=== PATIENT | male | born 1970 | race Caucasian/White ===

== ENCOUNTER → 2017-10-14 | Outpatient (CLI) | payer OTHER | LOC: M PLARAD 09:37 | DX: C43.39 Malignant melanoma of other parts of face (principal) | CPT/HCPCS: 78816 ==

== ENCOUNTER 2025-04-06 12:51 | Observation (INO) | payer BC ==
[~2025-04-06] VITALS: Ht 167.6 cm; Wt 74.5 kg
[2025-04-06] MEDS ORDERED: MONT-5 PO (13:08)
[2025-04-06] MEDS ORDERED: LISI5TAB11 PO (13:08)
[2025-04-06] MEDS ORDERED: INDA2.5T2 PO (13:08)
[2025-04-06] MEDS ORDERED: MONT5TAB7 PO (13:08)
[2025-04-06 15:00] LABS: BASO # 0.0 10^3/uL (0.0-0.2); BASO % 0.4 % (0.0-1.0); EOS # 0.1 10^3/uL (0.0-0.5); EOS % 0.6 % (0.0-3.0); LYMPH # 2.8 10^3/uL (1.5-5.0); LYMPH % 30.1 % (24.0-44.0); MONO # 0.9 10^3/uL (0.0-0.8); MONO % 9.5 % (2.0-8.0); NEUTROPHILS # 5.5 10^3/uL (1.5-8.5); NEUTROPHILS % 59.1 % (36.0-66.0); PLATELET COUNT, AUTOMATED 531 10^3/uL (150-450)
[2025-04-06 15:20] LABS: INR 1.13
[2025-04-06] MEDS ORDERED: ISOVUE-370 76% 100 ML VIAL As Ordered ONE (15:31)
[2025-04-06 15:35] LABS: ALT/SGPT 11 U/L (7.0-40); AST/SGOT 31 U/L (<34); CALCIUM LEVEL 9.2 MG/DL (8.5-10.1); CARBON DIOXIDE LEVEL 25 MMOL/L (20-31); CHLORIDE LEVEL 96 MMOL/L (98-107); CREATININE FOR GFR 0.79 MG/DL (0.70-1.30); GLOMERULAR FILTRATION RATE > 90.0 (>56); POTASSIUM SERUM 4.1 MMOL/L (3.5-5.1); SODIUM LEVEL 135 MMOL/L (136-145)
[2025-04-06] MEDS ORDERED: INDA1.253 PO (17:32)
[2025-04-06] MEDS ORDERED: HOME MED LIST COMPLETE! XX SCH (17:35)
[2025-04-06] MEDS ORDERED: MORPHINE 2 MG/ML 1 ML VIAL IV PRN (18:10)
[2025-04-06] MEDS: NS (Normal Saline) 0.9% 1,000 ML IV ONE (18:39)
[2025-04-06] MEDS: PANTOPRAZOLE 40MG VIAL IV SCH (18:39)
[2025-04-06] MEDS: NS (Normal Saline) 0.9% 1,000 ML IV SCH (19:48)
[2025-04-06] MEDS: MONTELUKAST 10 MG TAB PO SCH (21:12)
[2025-04-06 21:53] VITALS: BP 122/80; TEMP 97.7; O2SAT 99
[2025-04-07 03:28] VITALS: BP 102/68; TEMP 97.2; O2SAT 100
[2025-04-07 06:26] LABS: PLATELET COUNT, AUTOMATED 433 10^3/uL (150-450)
[2025-04-07 07:03] LABS: ALT/SGPT < 9 U/L (7.0-40); AST/SGOT 27 U/L (<34); CALCIUM LEVEL 8.4 MG/DL (8.5-10.1); CARBON DIOXIDE LEVEL 23 MMOL/L (20-31); CHLORIDE LEVEL 101 MMOL/L (98-107); CREATININE FOR GFR 0.80 MG/DL (0.70-1.30); GLOMERULAR FILTRATION RATE > 90.0 (>56); POTASSIUM SERUM 4.3 MMOL/L (3.5-5.1); SODIUM LEVEL 137 MMOL/L (136-145)
[2025-04-07 07:19] LABS: CA19-9 TUMOR MARKER,CARBOHYDRA 10.9 U/ML (<35.0)
[2025-04-07] MEDS: LIDOCAINE 1% MDV 20 ML VIAL SC ONE (11:30)
[2025-04-07 12:00] VITALS: BP 113/72; TEMP 97.7; O2SAT 100
[2025-04-07 20:39] VITALS: BP 112/70; TEMP 97.5; O2SAT 99
[2025-04-07 20:53] VITALS: BP 112/70
[2025-04-08 03:44] VITALS: BP 109/61; TEMP 98.1; O2SAT 97
[2025-04-08 06:28] LABS: BASO # 0.0 10^3/uL (0.0-0.2); BASO % 0.4 % (0.0-1.0); EOS # 0.1 10^3/uL (0.0-0.5); EOS % 0.6 % (0.0-3.0); LYMPH # 1.9 10^3/uL (1.5-5.0); LYMPH % 22.6 % (24.0-44.0); MONO # 1.0 10^3/uL (0.0-0.8); MONO % 11.4 % (2.0-8.0); NEUTROPHILS # 5.4 10^3/uL (1.5-8.5); NEUTROPHILS % 64.6 % (36.0-66.0); PLATELET COUNT, AUTOMATED 387 10^3/uL (150-450)
[2025-04-08 06:55] LABS: CALCIUM LEVEL 8.1 MG/DL (8.5-10.1); CARBON DIOXIDE LEVEL 24 MMOL/L (20-31); CHLORIDE LEVEL 104 MMOL/L (98-107); CREATININE FOR GFR 0.70 MG/DL (0.70-1.30); GLOMERULAR FILTRATION RATE > 90.0 (>56); POTASSIUM SERUM 4.0 MMOL/L (3.5-5.1); SODIUM LEVEL 139 MMOL/L (136-145)
[2025-04-08 11:51] VITALS: BP 108/64; TEMP 98.1; O2SAT 100
== END 2025-04-08 12:46 | disposition home or self-care (01) ==
LOC: M ED 12:51 → INTOOBSV 18:07 → M ED INP 18:07 → M MSPAV 21:45
PROVIDERS: ADMIT Internal Medicine; ATTEND Internal Medicine
DX: C78.89 Secondary malignant neoplasm of other digestive organs (principal); R74.8 Abnormal levels of other serum enzymes; E87.1 Hypo-osmolality and hyponatremia; Z85.820 Personal history of malignant melanoma of skin; I10 Essential (primary) hypertension; J30.2 Other seasonal allergic rhinitis; Z79.899 Other long term (current) drug therapy; Z88.5 Allergy status to narcotic agent; Z88.8 Allergy status to other drugs, medicaments and biological substances
CPT/HCPCS: 10005; 36415; 74177; 77012; 80047; 80048; 80053; 80076; 82105; 82140; 82378; 83615; 83690; 85025; 85027; 85610; 85730; 86301; 88305; 93041; 96361; 96374; 96375; 96376; 99285; J2470; Q9967

== ENCOUNTER → 2025-04-19 | Outpatient (CLI) | payer BC ==
[~2025-04-19] MED LIST: INDA1.253 PO; INDA2.5T2 PO; LISI5TAB11 PO; MONT-5 PO; MONT5TAB7 PO
== END ==
LOC: M PLARAD 10:35
PROVIDERS: ATTEND General Practice
DX: C78.6 Secondary malignant neoplasm of retroperitoneum and peritoneum (principal)
CPT/HCPCS: 78816; A9552

== ENCOUNTER → 2025-04-26 | Outpatient (CLI) | payer BC ==
[~2025-04-26] MED LIST changes: +DEXA4TA PO; +PEPC1TAB5 PO
== END ==
LOC: M ONCR 10:44
PROVIDERS: ATTEND General Practice
DX: C79.89 Secondary malignant neoplasm of other specified sites (principal); C79.31 Secondary malignant neoplasm of brain; Z85.820 Personal history of malignant melanoma of skin; Z71.2 Person consulting for explanation of examination or test findings; Z98.890 Other specified postprocedural states; Z88.5 Allergy status to narcotic agent; Z88.6 Allergy status to analgesic agent

== ENCOUNTER → 2025-04-28 | Outpatient (CLI) | payer BC ==
[~2025-04-28] MED LIST changes: +PROHANCE 279.3MG/ML 15ML VIAL ONE
== END ==
LOC: M PLAIMG 13:33
PROVIDERS: ATTEND General Practice
DX: C78.6 Secondary malignant neoplasm of retroperitoneum and peritoneum (principal)
CPT/HCPCS: 70553; A9579

== ENCOUNTER 2025-05-11 08:31 | Outpatient (RCR) | payer BC ==
[~2025-05-11 08:31] MED LIST changes: +IMAT400T PO; +ONDA-282 PO; +OXYC1CAP2 PO; -PROHANCE 279.3MG/ML 15ML VIAL ONE
[2025-05-11] MEDS ORDERED: FERR325T3 PO (14:12)
== END 2025-05-15 ==
LOC: M ONCR 08:31
PROVIDERS: ATTEND General Practice
DX: Z51.0 Encounter for antineoplastic radiation therapy (principal); C79.31 Secondary malignant neoplasm of brain

== ENCOUNTER → 2025-05-25 | Outpatient (CLI) | payer BC ==
[~2025-05-25] MED LIST changes: +DEXA1TA PO; +DEXA2TA PO; +FERR325T3 PO
== END ==
LOC: M ONCR 10:20
PROVIDERS: ATTEND General Practice
DX: E24.2 Drug-induced Cushing's syndrome (principal); Z79.52 Long term (current) use of systemic steroids

== ENCOUNTER → 2025-06-14 | Outpatient (CLI) | payer BC ==
[~2025-06-14] MED LIST changes: +PRED20TA PO; +SERO50TA PO
== END ==
LOC: M RAD 07:57
PROVIDERS: ATTEND Student in an Organized Health Care Education/Training Program
DX: R22.43 Localized swelling, mass and lump, lower limb, bilateral (principal)

== ENCOUNTER → 2025-06-15 | Outpatient (CLI) | payer BC ==
[~2025-06-15] MED LIST changes: +ISOVUE-370 76% 100 ML VIAL ONE
== END ==
LOC: M PLAIMG 09:38
PROVIDERS: ATTEND Student in an Organized Health Care Education/Training Program
DX: C43.9 Malignant melanoma of skin, unspecified (principal); R59.0 Localized enlarged lymph nodes
CPT/HCPCS: 71260; 74177; Q9967